=== PATIENT | male | born 1950 | race Two or more races ===

== ENCOUNTER 2024-08-15 06:05 | Day surgery (SDC) | payer OTHER, SELFPAY ==
[2024-08-13 09:00] LABS: Hematocrit 38.2 % (39.0-52.0); Hemoglobin 12.1 g/dL (13.0-18.0); Mean Corp Hgb Conc. 31.7 g/dL (33.0-37.0); Mean Corpuscular Volume 88.2 fL (80.0-94.0); Platelet Count 242 10^3/uL (130-400); Red Cell Dist. Width 15.8 % (11.5-14.5)
[2024-08-13 10:21] LABS: ALT (SGPT) 18 U/L (0-50); AST (SGOT) 21 U/L (17-59); Albumin 4.4 g/dl (3.5-5.0); Alkaline Phosphatase 67 U/L (38-126); Blood Urea Nitrogen 17 mg/dl (9-20); Calcium 9.6 mg/dl (8.4-10.2); Carbon Dioxide 24 mmol/L (22-30); Chloride 107 mmol/L (98-107); Glucose 78 mg/dl (70-99); Potassium 4.8 mmol/L (3.5-5.1); Sodium 141 mmol/L (135-145); Total Protein 7.3 g/dl (6.3-8.2); eGFR > 60.00
[2024-08-13 14:11] VITALS: BMI 17.9
[2024-08-15 06:24] VITALS: BMI 17.9
[2024-08-15 06:25] VITALS: BP 141/85
[2024-08-15] MEDS: NORMOSOL-R/PLASMALYTE-A 1000 IV (06:34)
[2024-08-15 06:35] LABS: Glucose - Point of Care 88 mg/dl (70-99)
[2024-08-15 08:50] VITALS: BP 103/68
[2024-08-15 09:01] VITALS: BP 121/70
[2024-08-15 09:11] LABS: Glucose - Point of Care 90 mg/dl (70-99)
[2024-08-15 09:15] VITALS: BP 125/78
[2024-08-15] MEDS: ROXICODONE 5 MG PO (09:21)
[2024-08-15] MEDS: TYLENOL 650 MG PO (09:22)
[2024-08-15 09:30] VITALS: BP 139/76
== END 2024-08-15 10:30 | disposition home or self-care (01) ==
LOC: SDS 06:05
PROVIDERS: ATTENDING PHYSICIAN Otolaryngology; FAMILY PHYSICIAN Family Medicine
DX: D23.4 Other benign neoplasm of skin of scalp and neck (principal); D36.7 Benign neoplasm of other specified sites
CPT/HCPCS: 11423; 36415; 80053; 82962; 85027; 88304; 93005

== ENCOUNTER → 2025-02-10 16:20 | Outpatient (REF) | payer OTHER, SELFPAY | LOC: RAD 16:20 | PROVIDERS: ATTENDING PHYSICIAN Otolaryngology; FAMILY PHYSICIAN Family Medicine | DX: L72.3 Sebaceous cyst (principal); R22.1 Localized swelling, mass and lump, neck | CPT/HCPCS: 76536 ==